=== PATIENT | female | born 1960 | race Caucasian/White ===

== ENCOUNTER 2016-09-11 12:52 | Emergency (ER) | payer OTHER ==
[~2016-09-11] VITALS: Ht 162.6 cm; Wt 68.9 kg
--- NOTE | 2016-09-11 13:06 | ED GENERAL ADULT ---
History of Present Illness General Chief Complaint: Abdominal Pain/Flank Pain Stated Complaint: ABD PAIN SINCE BEGINNING OF AUGUST Source: patient Exam Limitations: no limitations Vital Signs & Intake/Output Vital Signs & Intake/Output Vital Signs Date Time Temp Pulse Resp B/P Pulse O2 O2 Flow FiO2 Ox Delivery Rate 09/11 1451 96.9 64 16 111/65 94 Room Air 09/11 1253 96.5 79 16 135/77 95 Room Air Room Air Allergies Coded Allergies: No Known Allergies (09/11/16) Reconcile Medications Oxycodone HCl/Acetaminophen (Percocet 5-325 MG Tablet) 5 MG-325 MG TABLET 1 TAB PO Q6HR PRN PAIN Triage Note: TRIAGE: 56 Y/O FEMALE PRESENTS C/O 05/24 LEFT LOWER ABDOMINAL PAIN. REPORTS "THE OTHER HOSPITALS WEREN'T FINDING ANY ANSWERS, SO WE DECIDED TO COME TO [place]." LAST BOWEL MOVEMENT THIS MORNING. DX DIVERTICULITIS IN [place]. PT WENT TO [facility] AND THEY REFERRED HER TO A SPECIALIST FOR 09/22/2016, "BUT THAT'S TOO LONG TO WAIT." Triage Nurses Notes Reviewed? yes Onset: Gradual Duration: worse persistent since (1 week) Timing: recent history Injury Environment: home Severity: moderate Severity Numbers: 8 No Modifying Factors: none HPI: This and is a 57-year-old female with history of bipolar on medication presenting to the emergency Department chief complaint of worsening left lower quadrant pain over the past 1 week. She reports that she was recently diagnosed with diverticulitis and seen at another facility. She was treated with IV antibiotics and discharged. She reports that she also developed shingles for which she was treated for. Pain is getting worse. She was taking tramadol for pain which did not help. Denies any nausea vomiting fevers or chills. (KARLA WEBBER) Past History Travel History Traveled to [place] past 21 day No Medical History Any Pertinent Medical History? see below for history Neurological: NONE EENT: NONE Cardiovascular: hypertension Respiratory: COPD Gastrointestinal: diverticulitis Hepatic: "SPOT ON MY LIVER" Psychiatric: bipolar disease Blood Disorders: NONE Cancer(s): NONE Surgical History Surgical History: non-contributory Psychosocial History What is your primary language Filipino Tobacco Use: Current Daily Use Daily Tobacco Use Amount/Type: => 5 Cigarettes daily ETOH Use: denies use Illicit Drug Use: denies illicit drug use Family History Hx Contributory? No (KARLA WEBBER) Review of Systems Review of Systems Constitutional: Reports: no symptoms. Comments Review of systems: See HPI, All other systems negative. Constitutional, no chills fever or weight loss HEENT: No visual changes no sore throat no congestion Cardiovascular: No chest pain ,palpitation , orthopnea or ankle swelling Skin, no jaundice no rashes Respiratory: No dyspnea cough sputum or hemoptysis GI: No nausea no vomiting : No dysuria No hematuria Muscle skeletal: no back pain, no neck pain, Neurologic: No numbness no confusion, no headaches Psych: Positive stress, denies depression Immunology: No splenectomy or history of AIDS (KRALA WEBBER) Physical Exam Physical Exam General Appearance: well developed/nourished, no apparent distress, alert, awake , anxious Comments: Well-developed well-nourished person in no acute distress HEENT: Pupils equally round and reactive to light and accommodation. Nose is atraumatic. Moist oral mucosa. Neck: Supple, no lymphadenopathy, normal range of motion without pain or tenderness Back: Nontender, no CVA tenderness. Full range of motion Cardiovascular: Regular rate and rhythms no murmurs rubs or gallops, normal JVP Respiratory: Chest nontender. No respiratory distress.breath sounds clear to auscultation bilaterally Abdomen: Soft, tender to palpation in llq, nondistended, no appreciable organomegaly. Normal bowel sounds. No ascites Extremity: No edema Neuro: Alert oriented x3 Skin: healing scabed vesicular lesions noted over the left lower quadrantat over the left flank Psych: Mood and affect is normal, memory and judgment is normal. Core Measures ACS in differential dx? No CVA/TIA Diagnosis: No Severe Sepsis Present: No Septic Shock Present: No (KARLA WEBBER) Progress Differential Diagnoses I considered the following diagnoses in my evaluation of the patient: post herpetic neuralgia, perf diverticulitis, intractable pain, dehydration Plan of Care: Orders Procedure Date/time Status LACTIC ACID 09/11 1305 Complete COMPREHENSIVE METABOLIC PANEL 09/11 1305 Complete CBC WITHOUT DIFFERENTIAL 09/11 1305 Complete Laboratory Tests 09/11/16 1605: Lactic Acid Cancelled 09/11/16 1324: Anion Gap 10, Estimated GFR > 60, BUN/Creatinine Ratio 16.3, Glucose 96, Lactic Acid 1.2, Calcium 10.0, Total Bilirubin 0.7, AST 17, ALT 26, Alkaline Phosphatase 95, Total Protein 7.1, Albumin 4.0, Globulin 3.1, Albumin/Globulin Ratio 1.3, CBC w Diff NO MAN DIFF REQ, RBC 5.12, MCV 86.0, MCH 29.3, RDW 13.8, MPV 7.6, Gran % 71.5, Lymphocytes % 21.4, Monocytes % 5.5, Eosinophils % 1.0, Basophils % 0.6, Absolute Granulocytes 7.0 H, Absolute Lymphocytes 2.1, Absolute Monocytes 0.5, Absolute Eosinophils 0.1, Absolute Basophils 0.1, PUBS MCHC 34.0 Diagnostic Imaging: Viewed by Me: CT Scan. Discussed w/RAD: CT Scan. Radiology Impression: PATIENT: CANDIDA MARIANO PRESENT AGE : 56 PATIENT ACCOUNT NO: [id number] : 61 LOCATION: [facility], [place] ORDERING PHYSICIAN: KARLA GRANADO SERVICE DATE: 09/11/16 EXAM TYPE: CAT - CT ABD & PELVIS W IV CONTRAST EXAMINATION: CT ABDOMEN AND PELVIS WITH CONTRAST CLINICAL INFORMATION: Left lower quadrant pain. COMPARISON: None TECHNIQUE: Multidetector volumetric imaging was performed of the abdomen and pelvis before and after the IV administration of 93 mL of Optiray 320 intravenous contrast. Sagittal and coronal reformatted images were obtained on the technologist's workstation. DLP: 335 mGy-cm. FINDINGS: LUNG BASES: There is minimal lingular atelectasis. There is dependent left basilar atelectasis. The heart size is normal. LIVER, GALLBLADDER, AND BILIARY TREE: The liver is normal in size, shape , and attenuation. There is a 7 mm hypodensity segment 7 right lobe image 13, series 2. It is too small to be correctly characterized. A 1.5 cm hypodensity seen segment 4b measuring 7 Hounsfield units, fluid density. No biliary ductal dilatation is present. The gallbladder is unremarkable with no evidence of radiopaque gallstones, gallbladder wall thickening, or obvious pericholecystic inflammatory changes. PANCREAS: Unremarkable. SPLEEN: Unremarkable. ADRENAL GLANDS: Unremarkable. KIDNEYS AND URETERS: The kidneys are normal in size, shape , and attenuation. No hydronephrosis, hydroureter, or calculi seen. No perinephric stranding. 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 BLADDER: Unremarkable. GASTROINTESTINAL TRACT: There is scattered stool seen throughout the entire colon without distention. There are scattered diverticuli in sigmoid and descending colon with mild colonic wall thickening but no pericolic inflammatory changes to suggest diverticulitis. The small-bowel loops and long tortuous appendix appears normal. ABDOMINAL WALL: No significant hernia is appreciated. LYMPH NODES: Normal. VASCULAR: Unremarkable. PELVIC VISCERA: No free fluid or free air. OSSEOUS STRUCTURES: There is mild superior endplate deformity L2 vertebra with spondylosis. No lytic or sclerotic process seen. IMPRESSION: Scattered sigmoid and descending colon diverticulosis with mild sigmoid wall thickening but no pericolic inflammatory changes. No proximal obstruction. Mild constipation. 2 hypodense liver lesions, probable cysts. DICTATED BY: FADUMO UP, REE DATE/TIME DICTATED:09/11/161433 DINKEY LOCOMOTIVE OPERATOR:FLORENTIN DATE/TIME TRANSCRIBED:09/11/161433 CONFIDENTIAL, DO NOT COPY WITHOUT APPROPRIATE AUTHORIZATION. <Electronically signed in Other Vendor System> SIGNED BY: FADUMO UP,REE 09/11/16 162 Initial ED EKG: none Comments: Patient feeling much better after IV fluids, IV morphine and Dilaudid. CT shows improvement of diverticulitis. Patient was informed that the pain is likely stemming from postherpetic neuralgia. She will follow-up with her primary care physician. Given a prescription for Percocet to go home with. Patient nontoxic. (ELENA GRANADO,KARLA) Departure Departure Time of Disposition: 1622 Disposition: HOME OR SELF CARE Condition: Stable Clinical Impression Primary Impression: Abdominal pain Qualifiers: Abdominal location: left lower quadrant Qualified Code: R10.32 - Left lower quadrant pain Secondary Impressions: Post herpetic neuralgia Referrals: [facility] Additional Instructions: Follow-up with your primary care physician CALL TO MAKE appointment. Take Percocet as prescribed for pain. Return for worsening symptoms or concerns. PATIENT: CANDIDA MARIANO PRESENT AGE: 56 PATIENT ACCOUNT NO: [id number] : 62 LOCATION: [facility], [place] ORDERING PHYSICIAN: KARLA GRANADO SERVICE DATE: 09/11/161305 EXAM TYPE: CAT - CT ABD & PELVIS W IV CONTRAST EXAMINATION: CT ABDOMEN AND PELVIS WITH CONTRAST CLINICAL INFORMATION: Left lower quadrant pain. COMPARISON: None TECHNIQUE: Multidetector volumetric imaging was performed of the abdomen and pelvis before and after the IV administration of 93 mL of Optiray 320 intravenous contrast. Sagittal and coronal reformatted images were obtained on the technologist's workstation. DLP: 335 mGy-cm. FINDINGS: LUNG BASES: There is minimal lingular atelectasis. There is dependent left basilar atelectasis. The heart size is normal. LIVER, GALLBLADDER, AND BILIARY TREE: The liver is normal in size, shape, and attenuation. There is a 7 mm hypodensity segment 7 right lobe image 13, series 2. It is too small to be correctly characterized. A 1.5 cm hypodensity seen segment 4b measuring 7 Hounsfield units, fluid density. No biliary ductal dilatation is present. The gallbladder is unremarkable with no evidence of radiopaque gallstones, gallbladder wall thickening, or obvious pericholecystic inflammatory changes. PANCREAS: Unremarkable. SPLEEN: Unremarkable. ADRENAL GLANDS: Unremarkable. KIDNEYS AND URETERS: The kidneys are normal in size, shape, and attenuation. No hydronephrosis, hydroureter, or calculi seen. No perinephric stranding. 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 BLADDER: Unremarkable. GASTROINTESTINAL TRACT: There is scattered stool seen throughout the entire colon without distention. There are scattered diverticuli in sigmoid and descending colon with mild colonic wall thickening but no pericolic inflammatory changes to suggest diverticulitis. The small-bowel loops and long tortuous appendix appears normal. ABDOMINAL WALL: No significant hernia is appreciated. LYMPH NODES: Normal. VASCULAR: Unremarkable. PELVIC VISCERA: No free fluid or free air. OSSEOUS STRUCTURES: There is mild superior endplate deformity L2 vertebra with spondylosis. No lytic or sclerotic process seen. IMPRESSION: Scattered sigmoid and descending colon diverticulosis with mild sigmoid wall thickening but no pericolic inflammatory changes. No proximal obstruction. Mild constipation. 2 hypodense liver lesions, probable cysts. DICTATED BY: FADUMO UP,REE DATE/TIME DICTATED:09/11/161433 DINKEY LOCOMOTIVE OPERATOR:FLORENTIN DATE/TIME TRANSCRIBED:09/11/161433 CONFIDENTIAL, DO NOT COPY WITHOUT APPROPRIATE AUTHORIZATION. <Electronically signed in Other Vendor System> SIGNED BY: FADUMO UP,REE 09/11/16 6912 Departure Forms: Customer Survey General Discharge Information Prescriptions: Current Visit Scripts Oxycodone HCl/Acetaminophen (Percocet 5-325 MG Tablet) 1 TAB PO Q6HR PRN PAIN #10 TAB (KARLA WEBBER) PA/PR MANAGER Co-Sign Statement Statement: ED Attending supervision documentation- [] I saw and evaluated the patient. I have also reviewed all the pertinent lab results and diagnostic results. I agree with the findings and the plan of care as documented in the PA's/PR MANAGER's documentation. x I have reviewed the ED Record and agree with the PA's/PR MANAGER's documentation. [] Additions or exceptions (if any) to the PAs/PR MANAGER's note and plan are summarized below: [] (ANNABEL UP,VASILIY) Critical Care Note Critical Care Note Critical Care Time: non-applicable (KARLA WEBBER)
[2016-09-11 14:03] LABS: ABSOLUTE BASOPHIL COUNT 0.1 /CUMM (0.0-0.2); ABSOLUTE EOSINOPHIL COUNT 0.1 /CUMM (0.0-0.7); ABSOLUTE LYMPH COUNT 2.1 /CUMM (1.2-3.4); ABSOLUTE MONOCYTE COUNT 0.5 /CUMM (0.10-0.60); BASOPHIL % 0.6 % (0.0-2.0); GRANULOCYTE % 71.5 % (42.2-75.2); HEMATOCRIT 44.1 % (37-47); MEAN CORPUSCULAR HGB 29.3 PG (27.0-31.0); MEAN PLATELET VOLUME 7.6 FL (7.4-10.4); PLATELET COUNT 402 /CUMM (130-400); RBC DISTRIBUTION WIDTH 13.8 % (11.5-14.5); RED BLOOD CELL CT 5.12 /CUMM (4.20-5.40); WHITE BLOOD CELL COUNT 9.8 /CUMM (4.8-10.8)
[2016-09-11] MEDS ORDERED: PERCOCET 5-3251 EACH PO (15:03)
--- NOTE | 2016-09-11 16:21 | CT SCAN REPORT ---
EXAMINATION: CT ABDOMEN AND PELVIS WITH CONTRAST CLINICAL INFORMATION: Left lower quadrant pain. COMPARISON: None TECHNIQUE: Multidetector volumetric imaging was performed of the abdomen and pelvis before and after the IV administration of 93 mL of Optiray 320 intravenous contrast. Sagittal and coronal reformatted images were obtained on the technologist's workstation. DLP: 335 mGy-cm. FINDINGS: LUNG BASES: There is minimal lingular atelectasis. There is dependent left basilar atelectasis. The heart size is normal. LIVER, GALLBLADDER, AND BILIARY TREE: The liver is normal in size, shape, and attenuation. There is a 7 mm hypodensity segment 7 right lobe image 13, series 2. It is too small to be correctly characterized. A 1.5 cm hypodensity seen segment 4b measuring 7 Hounsfield units, fluid density. No biliary ductal dilatation is present. The gallbladder is unremarkable with no evidence of radiopaque gallstones, gallbladder wall thickening, or obvious pericholecystic inflammatory changes. PANCREAS: Unremarkable. SPLEEN: Unremarkable. ADRENAL GLANDS: Unremarkable. KIDNEYS AND URETERS: The kidneys are normal in size, shape, and attenuation. No hydronephrosis, hydroureter, or calculi seen. No perinephric stranding. 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 BLADDER: Unremarkable. GASTROINTESTINAL TRACT: There is scattered stool seen throughout the entire colon without distention. There are scattered diverticuli in sigmoid and descending colon with mild colonic wall thickening but no pericolic inflammatory changes to suggest diverticulitis. The small-bowel loops and long tortuous appendix appears normal. ABDOMINAL WALL: No significant hernia is appreciated. LYMPH NODES: Normal. VASCULAR: Unremarkable. PELVIC VISCERA: No free fluid or free air. OSSEOUS STRUCTURES: There is mild superior endplate deformity L2 vertebra with spondylosis. No lytic or sclerotic process seen. IMPRESSION: Scattered sigmoid and descending colon diverticulosis with mild sigmoid wall thickening but no pericolic inflammatory changes. No proximal obstruction. Mild constipation. 2 hypodense liver lesions, probable cysts.
== END 2016-09-11 16:39 ==
LOC: ERH 12:52
PROVIDERS: Physician Assistant
DX: R10.32 Left lower quadrant pain (principal); B02.29 Other postherpetic nervous system involvement
CPT/HCPCS: 74177; 96361; 96374; 96375